=== PATIENT | male | born 1935 | race Caucasian/White ===

== ENCOUNTER 2017-09-25 15:29 | Emergency (ER) | payer MEDICARE, MEDICAID ==
[~2017-09-25] VITALS: Ht 162.6 cm; Wt 70.3 kg
[2017-09-25 15:29] VITALS: BP 118/65
--- NOTE | 2017-09-25 15:51 | Emergency Room Report ---
History of Present Illness General Chief Complaint: General Complaint Source: Medical Record, EMS Present Illness HPI 82-year-old male sent from assisted for allegedly leaking Eli catheter Patient nonverbal at baseline, not providing history of present illness EMS and assisted not specific about which part of tubings leaking. Allergies: Coded Allergies: No Known Allergies (Unverified , 09/25/17) Patient History Past Medical History: see triage record Past Surgical History: unable to obtain Pertinent Family History: unable to obtain Social History: Denies: smoking, alcohol use, drug use Immunizations: UTD Reviewed Nursing Documentation: PMH: Agreed, PSxH: Agreed Review of Systems All Other Systems: limited - nonverbal Physical Exam Vital Signs Date Time Temp Pulse Resp B/P (MAP) Pulse Ox O2 Delivery O2 Flow Rate FiO2 09/25/17 15:26 98.1 67 20 118/65 99 Nasal Cannula 3.0 Sp02 EP Interpretation: reviewed, normal General Appearance: normal inspection, well appearing, no apparent distress, alert, non-toxic, cachetic, thin, Chronically Ill Head: normocephalic, atraumatic Eyes: bilateral eye PERRL, bilateral eye EOMI ENT: normal ENT inspection, hearing grossly normal, normal pharynx, no angioedema, normal voice, TMs + canals normal, uvula midline, moist mucus membranes Neck: normal inspection, full range of motion, supple, thyroid normal, no meningismus, no bony tend Respiratory: normal inspection, lungs clear, normal breath sounds, no rhonchi, no respiratory distress, no retraction, no accessory muscle use, no wheezing, speaking full sentences Cardiovascular #1: regular rate, rhythm, no edema, no JVD, normal capillary refill Gastrointestinal: normal inspection, normal bowel sounds, non tender, soft, no mass, no peritonitis, non-distended, no guarding, no hernia, no pulsatile mass Genitourinary: no CVA tenderness, other - Eli catheter: There is leakage of urine from insertion site of Eli at penis. eli balloon visualized in bladder Musculoskeletal: normal inspection, back normal, normal range of motion, no calf tenderness, pelvis stable, Grant's Sign negative Neurologic: normal inspection, alert, responsive, field recorder III-XII nml as tested, motor strength/tone normal, cerebellar normal, normal gait, speech normal, other - 4 limb movement normal Psychiatric: normal inspection, judgement/insight normal, mood/affect normal, no suicidal/homicidal ideation, no delusions Skin: normal inspection, normal color, no rash Lymphatic: normal inspection, no adenopathy Medical Decision Making Diagnostic Impression: Primary Impression: Malfunction of Eli catheter Qualified Codes: T83.011A - Breakdown (mechanical) of indwelling urethral catheter, initial encounter ER Course Eli catheter leaking at site of an insertion of the penis Was replaced in ER Vital signs reviewed, afebrile, nonseptic appearing Patient chronically ill, nonverbal Lungs clear to auscultation, had abdomen soft nondistended No other obvious source of infection requiring additional lab work, imaging or admission at this time discharge back to [facility] ER course: Patient has remained stable during ED stay. Disposition: Patient is to be discharged to home. Patient is instructed to follow up with their primary care doctor within 5 days. Strict return precautions discussed with patient such as fever, chills, worsening/severe pain, nausea, vomiting, which may indicate severe illness. Patient verbalizes understanding and agrees with plan. Please note that this Emergency Department Report was dictated using [employer] technology software, occasionally this can lead to erroneous entry secondary to interpretation by the dictation equipment Last Vital Signs Date Time Temp Pulse Resp B/P (MAP) Pulse Ox O2 Delivery O2 Flow Rate FiO2 09/25/17 15:26 98.1 67 20 118/65 99 Nasal Cannula 3.0 Status: improved Disposition: [facility] JE CLINE M.D. Sep 25, 2017 15:50
[2017-09-25 16:24] VITALS: BP 118/65
== END 2017-09-25 16:24 ==
LOC: EDBD 15:29 → EMR 15:39
DX: T83.091A Other mechanical complication of indwelling urethral catheter, initial encounter (principal); Y84.6 Urinary catheterization as the cause of abnormal reaction of the patient, or of later complication, without mention of misadventure at the time of the procedure; Y92.129 Unspecified place in nursing home as the place of occurrence of the external cause
CPT/HCPCS: 51702; 99283